=== PATIENT | female | born 1980 | race Caucasian/White ===

== ENCOUNTER → 2019-04-22 | Day surgery (SDC) | payer BC ==
[~2019-04-22] MED LIST: Lidocaine 1% 20 ML MDV ONE
== END ==
LOC: CC.SDS 10:14
PROVIDERS: ATTEND Family Medicine
DX: I87.2 Venous insufficiency (chronic) (peripheral) (principal); I83.813 Varicose veins of bilateral lower extremities with pain
CPT/HCPCS: 36475; A4216